=== PATIENT | female | born 1980 | race Caucasian/White ===

== ENCOUNTER 2024-06-10 08:27 | Emergency (ER) | payer OTHER, SELFPAY ==
[2024-06-10 08:39] VITALS: BP 146/106; PULSE 62; RESP 24; TEMP 36.1; O2SAT 100
--- NOTE | 2024-06-10 08:43 | CTR_ITS ---
PROCEDURE INFORMATION: Exam: CT Abdomen And Pelvis Without Contrast Exam date and time: 06/10/2024 9:44 AM Age: 43 years old Clinical indication: Abdominal pain; Flank; Right; Prior surgery; Surgery date: 6+ months; Surgery type: Gb; Additional info: Flank pain TECHNIQUE: Imaging protocol: Computed tomography of the abdomen and pelvis without contrast. Radiation optimization: All CT scans at this facility use at least one of these dose optimization techniques: automated exposure control; mA and/or kV adjustment per patient size (includes targeted exams where dose is matched to clinical indication); or iterative reconstruction. COMPARISON: No relevant prior studies available. RADIATION DOSE METRICS: Total DLP (mGy-cm): 808.9 FINDINGS: Lungs: Lung bases are clear as visualized. Diaphragm: There may be a small hiatal hernia. Liver: There is diffuse fatty infiltration of the liver. The liver is otherwise normal. Gallbladder and biliary ducts: There are surgical clips within the gallbladder fossa. Pancreas: Normal. No ductal dilation. Spleen: Normal. No splenomegaly. Adrenal glands: Normal. No mass. Kidneys and ureters: There is mild hydronephrosis on the right secondary to a 1 mm stone within the proximal right ureter just distal to the ureteropelvic junction. Small hyperdense lesion projects off the inferior pole of the left kidney measuring 1 cm in size. This could represent a small hyperdense cyst or small solid mass.The kidneys otherwise have a normal noncontrast appearance. Stomach and bowel: There are scattered colonic diverticula. No large bowel wall thickening is appreciated. No dilated loops of large or small bowel is appreciated. Appendix: No evidence of appendicitis. Intraperitoneal space: Unremarkable. No free air. No significant fluid collection. Vasculature: Unremarkable. No abdominal aortic aneurysm. Lymph nodes: Unremarkable. No enlarged lymph nodes. Urinary bladder: Unremarkable as visualized. Reproductive: There is abnormal thickening involving the endometrial stripe which measures greater than 2.2 cm. No abnormalities are otherwise noted with regards to the reproductive organs. Bones/joints: Unremarkable. No acute fracture. Soft tissues: Unremarkable. CT/CT kidney stone [id number] IMPRESSION: 1. Mild hydronephrosis on the right secondary to a 1 mm stone just distal to the ureteropelvic junction. 2. Small hyperdense lesion projecting off the lower pole of the left kidney measuring 1 cm in size. This could represent a hyperdense cyst or a small solid mass. Initially would recommend evaluation with ultrasound. This can be performed on a nonemergent basis. 3. Abnormal thickening involving the endometrial stripe. Recommend bobbin winder tender referral for further appropriate workup/follow-up. Differential possibilities would include endometrial hyperplasia, endometrial carcinoma or possibly endometrial polyp formation. 4. Please see above comments for additional details. COMMENTS: Consistent with the [employer]'s Incidental Findings Committee white paper (J Am Francis Radiol 2018): Any incidental renal lesion less than 1 cm or classified as too small to characterize, or any incidental cystic renal lesion characterized as simple-appearing, is likely benign. No follow-up imaging is recommended for these lesions per consensus recommendations based on imaging criteria.
--- NOTE | 2024-06-10 08:49 | W.ED.ABDPA2 ---
HPI - Abdominal Pain General: Chief Complaint: Abdominal Pain Stated Complaint: right abd pain Time Seen by Provider: 06/10/24 08:28 Source: patient Mode of arrival: ambulatory Limitations: no limitations History of Present Illness: 43-year-old female states she woke up at 730 morning with sudden severe right sided flank pain that radiates into her right abdomen states pain is a 10 out of 10 she been having nausea denies any worsening improving factors denies any fever denies any dysuria Associated Symptoms: Reports nausea; Denies chills, diarrhea, dysuria, fever(s) and vomiting Related Data Home Medications ?Medication ?Instructions ?Recorded ?Confirmed levocetirizine 5 mg tablet (Xyzal) See Rx Instructions PO DAILY 03/11/21 06/10/24 montelukast 10 mg tablet 10 mg PO DAILY 03/11/21 06/10/24 (Singulair) albuterol sulfate 90 mcg/actuation 2 puff inhalation Q4H PRN 06/10/24 06/10/24 aerosol inhaler Shortness Of Breath Or Wheezing amoxicillin 875 mg-potassium 1 tab PO BID 06/10/24 06/10/24 clavulanate 125 mg tablet fexofenadine 60 mg tablet 60 mg PO Q12H 06/10/24 06/10/24 metformin 500 mg tablet,extended 1,000 mg PO DAILY 06/10/24 06/10/24 release 24 hr Previous Rx's ?Medication ?Instructions ?Recorded betamethasone dipropionate 0.05 % 1 applic topical BID #45 grams 03/11/21 topical ointment triamcinolone acetonide 0.1 % 1 applic topical BID #80 grams 03/11/21 topical ointment hydrocodone 5 mg-acetaminophen 325 1 tab PO Q6H PRN pain #14 tabs 06/10/24 mg tablet Allergies Allergy/AdvReac Type Severity Reaction Status Date / Time benzoyl peroxide Allergy Pins and Verified 03/11/21 14:26 needles ibuprofen Allergy GI Bleed Verified 03/11/21 14:27 Review of Systems Const: Denies: fever(s), chills, body aches or change in appetite ENMT: Denies: throat pain or dental pain Card: Denies: chest pain Resp: Denies: dyspnea GI: Reports: abdominal pain and nausea; Denies: vomiting or diarrhea : Reports: flank pain; Denies: dysuria Musc: Denies: neck pain or back pain Skin/Breast: Denies: rash Neuro: Denies: headache(s) PFSH ED PFSH: Medical History Seasonal allergies FH: cholecystectomy Social History Smoking and tobacco/nicotine status: never used tobacco/nicotine Physical Exam Const: COMMON NORMALS: patient oriented x3 HENMT: COMMON NORMALS: normocephalic and atraumatic HEAD & SCALP: normocephalic and atraumatic Eye: COMMON NORMALS: Equal, round and reactive pupils present and EOMs intact bilaterally PUPIL: Yes Equal, round and reactive pupils present Neck/C-Spine: COMMON NORMALS: full ROM and supple Chest: COMMONS NORMALS: normal inspection of the chest and normal palpation of entire chest wall Resp: COMMON NORMALS: normal respiratory effort, No retractions, No use of accessory muscles and clear to auscultation bilaterally AUSCULTATION: clear to auscultation bilaterally Cardio: COMMON NORMALS: regular rate, regular rhythm and No murmurs present (Cardio) RATE: regular rate RHYTHM: regular rhythm GI: COMMON NORMALS: Normal to inspection, nondistended, normoactive bowel sounds present, Soft to palpation, non-tender and no masses PALPATION: Yes Soft to palpation Extremity: COMMON NORMALS: normal to inspection and full ROM Neuro: COMMON NORMALS: patient oriented x3, moves all extremities and no focal motor deficits Psych: COMMON NORMALS: mental status grossly normal, Normal thought process present and cooperative THOUGHT PROCESS: Normal thought process present Skin: COMMON NORMALS: no rashes or lesions noted and no wounds GENERAL SKIN EXAM: no rashes or lesions noted Course Vital Signs: Vital signs: Vital Signs Temperature 97.0 F L 06/10/24 08:39 Pulse Rate 62 06/10/24 08:39 Respiratory Rate 24 H 06/10/24 08:39 Blood Pressure 146/106 06/10/24 08:39 Pulse Oximetry 100 06/10/24 08:39 MDM - Abdominal Pain Medical Decision Making Patient presents here with flank pain she does have a kidney stone no signs UTI her pain is much improved here small stone should pass on her own I did inform her of the incidental findings on the CT and to have her PCP review them and to follow them up she understands agrees to plan she is return if worsening. Medical Records I reviewed the patient's medical records. Lab Data I reviewed the patient's lab results. 06/10/24 09:03 06/10/24 09:03 Labs/Radiology: Radiology Impressions Abdomen/Pelvis CT 06/10/24 08:43 IMPRESSION: 1. Mild hydronephrosis on the right secondary to a 1 mm stone just distal to the ureteropelvic junction. 2. Small hyperdense lesion projecting off the lower pole of the left kidney measuring 1 cm in size. This could represent a hyperdense cyst or a small solid mass. Initially would recommend evaluation with ultrasound. This can be performed on a nonemergent basis. 3. Abnormal thickening involving the endometrial stripe. Recommend software technical lead referral for further appropriate workup/follow-up. Differential possibilities would include endometrial hyperplasia, endometrial carcinoma or possibly endometrial polyp formation. 4. Please see above comments for additional details. COMMENTS: Consistent with the [employer]'s Incidental Findings Committee white paper (J Am Francis Radiol 2018): Any incidental renal lesion less than 1 cm or classified as too small to characterize, or any incidental cystic renal lesion characterized as simple-appearing, is likely benign. No follow-up imaging is recommended for these lesions per consensus recommendations based on imaging criteria. Laboratory Results WBC 7.75 10^3/uL (3.29-11.43) 06/10/24 09:03 RBC 5.28 10^6/uL (3.85-5.65) 06/10/24 09:03 Hgb 14.70 g/dL (11.27-16.99) 06/10/24 09:03 Hct 43.7 % (36-47) 06/10/24 09:03 MCV 82.8 fl (85-98) L 06/10/24 09:03 MCH 27.8 pg (27-33) 06/10/24 09:03 MCHC 33.6 g/dL (30-55) 06/10/24 09:03 RDW 12.2 % (12.1-15.1) 06/10/24 09:03 Plt Count 322 10^3/cmm (157-399) 06/10/24 09:03 MPV 9.3 fL (7.4-10.4) 06/10/24 09:03 Neut % (Auto) 59.2 % 06/10/24 09:03 Lymph % (Auto) 32.0 % 06/10/24 09:03 [place] % (Auto) 3.6 % 06/10/24 09:03 Eos % (Auto) 4.0 % 06/10/24 09:03 Baso % (Auto) 0.8 % 06/10/24 09:03 Neut # (Auto) 4.59 10^3/uL (1.8-7.7) 06/10/24 09:03 Lymph # (Auto) 2.5 10^3/uL (0.8-4.8) 06/10/24 09:03 [place]ven # (Auto) 0.3 10^3/uL (0.2-0.9) 06/10/24 09:03 Eos # (Auto) 0.3 10^3/uL (0.0-0.8) 06/10/24 09:03 Baso # (Auto) 0.1 10^3/uL (0.0-0.1) 06/10/24 09:03 Nucleated RBC % (auto) 0 % 06/10/24 09:03 Nucleated RBCs # 0.0 /100WBC 06/10/24 09:03 Sodium 138 mmol/L (136-145) 06/10/24 09:03 Potassium 3.9 mmol/L (3.5-5.1) 06/10/24 09:03 Chloride 100 mmol/L (98-107) 06/10/24 09:03 Carbon Dioxide 21 mmol/L (22-29) L 06/10/24 09:03 Anion Gap 20.9 (5-19) H 06/10/24 09:03 BUN 22 mg/dL (6-20) H 06/10/24 09:03 Creatinine 0.9 mg/dL (0.5-0.9) 06/10/24 09:03 GFR Calculation 68.7 mL/min (90-130) L 06/10/24 09:03 Glucose 177 mg/dL (65-115) H 06/10/24 09:03 Calculated Osmolality 294 mOsm/kg (285-295) 06/10/24 09:03 Calcium 9.5 mg/dL (8.5-10.5) 06/10/24 09:03 Total Bilirubin 0.3 mg/dL (0.15-1.2) 06/10/24 09:03 AST 28 U/L (0-32) 06/10/24 09:03 ALT 42 U/L (0-33) H 06/10/24 09:03 Alkaline Phosphatase 74 U/L (35-105) 06/10/24 09:03 Total Protein 7.6 g/dL (6.6-8.7) 06/10/24 09:03 Albumin 4.4 g/dL (3.5-5.2) 06/10/24 09:03 Globulin 3.2 g/dL (1.3-4.6) 06/10/24 09:03 Lipase 25 U/L (13-60) 06/10/24 09:03 HCG, Qual Negative (Negative) 06/10/24 09:03 Urine Color Red (Yellow) A 06/10/24 10:15 Urine Appearance Cloudy (CLEAR) A 06/10/24 10:15 Urine pH 6.0 (5-7) 06/10/24 10:15 Ur Specific [place] 1.030 (1.005-1.030) 06/10/24 10:15 Urine Protein 1+ (Negative) A 06/10/24 10:15 Urine Glucose (UA) Negative (Normal) 06/10/24 10:15 Urine Ketones 4+ (Negative) 06/10/24 10:15 Urine Blood 3+ (Negative) A 06/10/24 10:15 Urine Nitrate Negative (Negative) 06/10/24 10:15 Urine Bilirubin Negative (Negative) 06/10/24 10:15 Urine Urobilinogen 1.0 mg/dL (Negative) 06/10/24 10:15 Ur Leukocyte Esterase Trace (Negative) A 06/10/24 10:15 Urine RBC >100 /hpf (0-2) H 06/10/24 10:15 Urine WBC 6-10 /hpf (0-5) 06/10/24 10:15 Ur Squamous Epith Cells 0-5 /hpf (0-5) 06/10/24 10:15 Amorphous Sediment Not Reportable 06/10/24 10:15 Urine Bacteria None seen /hpf (NONE) 06/10/24 10:15 Hyaline Casts 1.21 /lpf 06/10/24 10:15 All radiology interpretation(s) finalized by discharge Discharge Plan Discharge Patient Disposition: Home Clinical Impression: Kidney stone Condition: Stable Prescriptions: New hydrocodone-acetaminophen 5-325 mg tablet 1 tab PO Q6H PRN (Reason: pain) Qty: 14 0RF No Action levocetirizine [Xyzal] 5 mg tablet See Rx Instructions PO DAILY Rx Instructions: PO daily; montelukast [Singulair] 10 mg tablet 10 mg PO DAILY triamcinolone acetonide 0.1 % ointment 1 applic topical BID Qty: 80 1RF Rx Instructions: to hands BID alt. with clobetasol as needed for flares no more than 2 wks/mo betamethasone dipropionate 0.05 % ointment 1 applic topical BID Qty: 45 3RF Rx Instructions: to hands bid x 2 weeks alternating with triamcinolone albuterol sulfate 90 mcg/actuation HFA aerosol inhaler 2 puff INHALATION Q4H PRN (Reason: Shortness Of Breath Or Wheezing) metformin 500 mg tablet extended release 24 hr 1,000 mg PO DAILY amoxicillin-pot clavulanate 875-125 mg tablet 1 tab PO BID fexofenadine [Melisa] 60 mg Tablet 60 mg PO Q12H Discharge Orders: Discharge ED (Routine); Ordered 06/10/24 Ordered By: Sahara Quispe Discharge Diet: Advance as tolerated Discharge Activity: Resume usual activity Patient Instructions: Kidney Stones (ED), Opioid Safety Print Language: Syriac Coding Level of Care Code ED Elevator Constructor Hydraulic for Jerilyn Leonardo
[2024-06-10] MEDS: morphine 4 mg/mL SDV 1 mL IVP (09:03)
[2024-06-10] MEDS: ondansetron 2 mg/ML SDV 2 mL 4 MG IVP (09:03)
[2024-06-10] MEDS: ketorolac 30 mg/mL INJ IVP (09:03)
[2024-06-10 09:11] LABS: Basophils # 0.1 10^3/uL (0.0-0.1); Basophils % 0.8 %; Eosinophils # 0.3 10^3/uL (0.0-0.8); Hematocrit 43.7 % (36-47); Lymphocytes # 2.5 10^3/uL (0.8-4.8); Mean Corpuscular HGB Conc 33.6 g/dL (30-55); Mean Corpuscular Hemoglobin 27.8 pg (27-33); Mean Corpuscular Volume 82.8 fl (85-98); Mean Platelet Volume 9.3 fL (7.4-10.4); Monocytes # 0.3 10^3/uL (0.2-0.9); Monocytes % 3.6 %; Neutrophils # 4.59 10^3/uL (1.8-7.7); Neutrophils % 59.2 %; Nucleated Red Blood Cells % 0 %; Platelet Count 322 10^3/cmm (157-399); Red Blood Count 5.28 10^6/uL (3.85-5.65); Red Cell Distribution Width 12.2 % (12.1-15.1); White Blood Count 7.75 10^3/uL (3.29-11.43)
[2024-06-10 09:26] LABS: HCG, Serum Qual Negative (Negative)
[2024-06-10 09:30] LABS: Alanine Aminotransferase 42 U/L (0-33); Albumin Level 4.4 g/dL (3.5-5.2); Alkaline Phosphatase 74 U/L (35-105); Anion Gap 20.9 (5-19); Aspartate Amino Transferase 28 U/L (0-32); Blood Urea Nitrogen 22 mg/dL (6-20); Calcium 9.5 mg/dL (8.5-10.5); Carbon Dioxide 21 mmol/L (22-29); Chloride 100 mmol/L (98-107); Creatinine Clr Calc Pharmacy 102.0412; Globulin 3.2 g/dL (1.3-4.6); Glomerular Filtration Rate 68.7 mL/min (90-130); Glucose 177 mg/dL (65-115); Lipase 25 U/L (13-60); Osmolality Calculated 294 mOsm/kg (285-295); Potassium 3.9 mmol/L (3.5-5.1); Sodium 138 mmol/L (136-145); Total Bilirubin 0.3 mg/dL (0.15-1.2); Total Protein 7.6 g/dL (6.6-8.7)
[2024-06-10 10:24] LABS: Bilirubin Urine Negative (Negative); Blood Urine 3+ (Negative); Glucose Urine UA Negative (Normal); Ketones Urine 4+ (Negative); Leukocyte Esterase Urine Trace (Negative); Nitrate Urine Negative (Negative); Protein Urine 1+ (Negative); Urine Appearance Cloudy (CLEAR)
[2024-06-10 10:29] LABS: Add Urine Microscopic? YES; Bacteria Urine None Seen /hpf; Hyaline Casts Urine 1.21 /lpf; RBC Urine >100 /hpf (0-2); Squamous Epithelial Cell Urine 0-5 /hpf (0-5)
[2024-06-10 10:38] LABS: Urine Color Red (Yellow)
[2024-06-10 10:39] LABS: Add Urine Culture? Yes; UA Slide Review UA Slide Review Perf
== END 2024-06-10 12:11 | disposition home or self-care (01) ==
PROVIDERS: Emergency Provider Emergency Medicine
DX: N20.0 Calculus of kidney (principal)
CPT/HCPCS: 36415; 74176; 80053; 81001; 83690; 84703; 85025; 87086; 96374; 96375; 99285; J1885; J2270; J2405

== ENCOUNTER 2024-06-30 15:32 | Outpatient (CLI) | payer OTHER, SELFPAY ==
--- NOTE | 2024-06-30 15:37 | US_ITS ---
WS: [id number] RENAL ULTRASOUND HISTORY: KDINEY STONES COMPARISON: CT 06/10/2024 TECHNIQUE: 2-D and color Doppler imaging of the kidney submitted. Right kidney: 10.7 cm x 7.0 cm x 4.5 cm. Cortex: 1.1 cm Normal size kidney. No hydronephrosis identified. No solid mass. Left kidney: 9.2 cm x 4.1 cm x 3.7 cm. Cortex: 1.1 cm Very small hypoechoic mass from the lower pole LEFT kidney measures 0.4 x 0.9 x 0.9 mm. Corresponds to the hyperdense lesion seen by CT. This is very small but is probably a complex cyst. No increased vascularity. Due to its small size this lesion remains indeterminant. Aorta: Normal. Urinary Bladder: Nondistended. Prominent endometrium. US/US renal BI* [id number] IMPRESSION: 1. No RIGHT hydronephrosis identified. 2. Hypoechoic mass lower pole LEFT kidney measures 0.4 x 0.9 x 0.9 mm. Corresp onds to the hyperdense mass seen on recent CT. Too small to completely characte marianne but is probably a complex cyst. This can be further evaluated at this time by CT or MRI renal mass protocol or ultrasound follow-up in 6 months.
== END 2024-06-30 15:33 | disposition home or self-care (01) ==
PROVIDERS: PCP Family Medicine; Visit Provider Family Medicine
DX: N20.0 Calculus of kidney (principal); N28.89 Other specified disorders of kidney and ureter
CPT/HCPCS: 76770